=== PATIENT | male | born 1995 | race Caucasian/White ===

== ENCOUNTER 2017-02-15 20:23 | Emergency (ER) | payer OTHER ==
[~2017-02-15] VITALS: Ht 175.3 cm; Wt 59.1 kg
[2017-02-15 20:58] VITALS: BP 129/75; PULSE 72; RESP 16; O2SAT 99
--- NOTE | 2017-02-15 22:10 | ED.REPORT ---
HPI-General Illness Date of Service Feb 15, 2017 ED Provider: Terrence Ho MD A 21 year old male with no pertinent medical history presents to the ED following a head injury that occurred 6 hours prior to arrival. The patient was reportedly riding his skateboard when he fell onto his left side. He is currently complaining of left shoulder pain and left TMJ pain. He rates his pain as a constant 7/10 and the pain is exacerbated by eating.Patient was able to ambulate following the incident. The patient hit his left face and left ear and ripped out a 5/8 gauge. He reports a moment of confusion following the injury. Patient denies any LOC, neck pain, back pain, visual changes, difficulty breathing, numbness/tingling nausea or vomiting. Patient is up to date on all of his vaccinations including tetanus. Nursing Notes Stated Complaint: LACERATION OF LEFT EAR LOBE, TMJ PAIN Chief Complaint: Head, Face, Neck Trauma Nursing Notes Reviewed: Yes Allergies: Coded Allergies: No Known Allergies (Unverified , 02/15/17) No Active Prescriptions or Reported Meds General Time Seen by MD: 21:59 Chief Complaint Other (Head Injury) Hx Obtained From: Patient Arrived By: Walk-in Sudden in Onset?: Yes Onset Occurred: 5 - 8 hours ago (6 hours prior) Symptom Duration: Since onset Caused by: Accidental Location: : Face: Head Quality: Painful Radiation: : Does not radiate Severity: Current: Pain level 7 out of 10 Severity: Maximum: Pain level 7 out of 10 Associated with: Reports: Headache, Denies: Difficulty breathing, Nausea, Vomiting Pertinent Negative: Pt denies other symptoms Exacerbated by: Eating Recent Healthcare: No recent doctor visit, No recent hospitalization Similar Sx Previous: No Past Medical History Past Medical History Inguinal hernia; otherwise healthy Past Surgical History Inguinal hernia repair Family History Non-contributory Smoking History Former Smoker Social History Alcohol Use: "Social" 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), THC Other Social History: Good social support, Lives with parents, Local resident Ambulatory Status Independent Review of Systems Full Review of Systems Constitutional: Denies: Weakness - generalized Eyes: Denies: Visual loss bilateral Respiratory: Denies: Shortness of breath Cardiovascular: Denies: Chest pain GI: Denies: Nausea, Vomiting Musculoskeletal: Reports: Joint pain (TMJ pain), Joint swelling (Wrist and knee pain), Denies: Back pain, Neck pain Skin: Reports Swelling Neurologic: Reports: Confusion, Headache, Denies: Change LOC, Dizziness, Lightheaded, Numbness, Vision change Complete sys rev & neg: except as marked. Physical Exam General: Airway patent, GCS of 15 --- eyes (4), verbal (5), motor (6) HEENT: Right eye normal with pupils 4-3 and briskly reactive Left eye normal with pupils 4-3 and briskly reactive Ear - 1.5 cm to lobule of the left ear + Left TMJ tenderness. Left tympanic membrane normal, right tympanic membrane normal Midface stable, no malocclusion No nasal septal hematoma No obvious external signs of trauma to the scalp appreciated Neck: nontender, trachea midline. Lungs: Clear to auscultation bilaterally, normal work of breathing Chest: Stable without tenderness, no crepitus Cardiac: Regular rate and rhythm Abdomen: Normal, non-tender, non-distended. Back: No bruising, tenderness, or step-offs Pelvis: Stable Skin: Warm and well perfused Extremities: Left upper extremity grossly normal, no deformity. Abrasion to left wrist without tenderness. No bony tenderness. Full ROM. Right upper extremity grossly normal, no deformity. Right lower extremity grossly normal, no deformity. Left lower extremity grossly normal, no deformity. Pulses: Palpable to bilateral upper and lower extremities Neuro: Motor and sensory exams grossly within normal limits; patient localizes to pain. Vital Signs Vital Signs Date Time Temp Pulse Resp B/P Pulse Ox O2 Delivery O2 Flow Rate FiO2 02/16/17 00:31 55 20 116/81 98 Room Air 02/15/17 20:58 36.7 72 16 129/75 99 Room Air Interpretation & Diagnostics CT Head Interpretation CT of the patient's face: IMPRESSION: No CT evidence of acute osseous pathology Study: Head CT no contrast Interpretation / Wet Read by: Interpret - Radiologist (Nightshift) Procedures Dental Nerve Block Dental Nerve Block Note: Regional nerve block of the left ear Time: 23:46 Block Performed by: ED physician Indication: Laceration repair face Consent / Setup / Site Prep: Consent from patient, Time-out performed, Hand hygiene observed, Stand sterile technique, Sterile drapes applied Local Anesthesia: Lidocaine 1% Post-Procedure / Complications: No complications, Condition improved, Tolerated procedure well, Patient stable, No bleeding Laceration Management Laceration Management: Lobule of the left ear Time: 23:46 Procedure Performed by: ED physician Consent / Setup / Site Prep: Consent from patient, Time-out performed, Hand hygiene observed, Stand sterile technique Local Anesthesia: Lidocaine 1% Wound Preparation: Shurclens Debridement: None Irrigation: Copious Foreign Body Explore / Removal: Explored for foreign body Repair Skin: ___ O (4), Nylon # Sutures - Skin: 4 Suture Technique: Simple (Interrupted) Post-Procedure / Complications: Antibiotic oint applied, Dressing applied, No complications, Condition improved, Tolerated procedure well, Patient stable Re-Eval/Medical Decision Med Decision/Clinical Course In summary, 21-year-old male presenting to the ED for evaluation after a fall while skateboarding earlier today. Currently with pain to the left ear and left jaw; did not lose consciousness, no nausea or vomiting, no significant amnesia to the event; no need for head CT at this time per [place] head CT rules. No midline neck tenderness nor complaints of neck pain whatsoever. No trismus. A CT scan of the patient's face was obtained and negative for any acute abnormality. He does have some left shoulder pain, and we discussed performing a x-ray, however the patient states that it feels more like a muscular strain and he does not have any bony tenderness there, full range of motion without pain. The lobule of the left ear was repaired as per above. His tetanus is up-to-date. Plan discharge home with careful return precautions , PCP follow-up in the next several days. Patient agreeable to the plan as stated, no further questions. Time of Eval: 23:46 Re-Evaluation/Progress Note: Laceration is repaired with digital block to left ear. Pt tolerates without complication. Time of Eval: 23:57 Patient Status: Condition improved Re-Evaluation/Progress Note: Patient condition is re-evaluated. He is informed of his current results and the intended treatment plan. All questions are addressed. He understands and agrees with the plan. Counseled Regarding: Diagnosis, Need for follow-up, When/why to return to ED Discharge & Departure Primary Impression: Head injury Encounter type: initial encounter Qualified Code: S09.90XA - Unspecified injury of head, initial encounter Additional Impression: Ear lobe laceration Encounter type: initial encounter Laterality: left Qualified Code: S01.312A - Laceration without foreign body of left ear, initial encounter Disposition: Home Discharge Condition All VS Reviewed: Yes Condition: Improved Patient Instructions: Head Injury (ED), Laceration (ED) Additional Instructions: Thank you for entrusting us with your care today. Your emergency department evaluation today included interview, examination, and CT of your face. Your results are reassuring that there is no emergent cause for concern at this time and there is no evidence of fracture. However, if you' re having trouble opening your mouth or eating return to the ED right away. We repaired the laceration to your ear this evening. You tolerated the procedure very well. Please keep the area clean and dry for the next 24 hours and return to the emergency department in the next 7-10 days to have the stitches removed. Schedule a follow up appointment with your primary care physician (see referral ) or Urgent Care in the next 24-48 hours for a recheck. Please return to the emergency department for further evaluation and possible X- ray if you being to experience any new or worsening pain in your shoulder, or if you have headache, significant amount of blood, pus coming from the wound, nausea, vomiting, fever, chills, numbness/tingling in your arms or legs, loss of consciousness or any other concerning signs of symptoms. Referrals: NOPCP (PCP) Leta Razo MD Scribe Attestation Portions of this note were transcribed by Wesley Murillo. I, Dr. Ho, personally performed the history, physical exam and medical decision-making; I reviewed and confirmed the accuracy of the information in the transcribed note. Signed by: Wesley Murillo, 02/15/17. Terrence Ho MD Feb 15, 2017 22:10 WESLEY MURILLO Feb 15, 2017 22:17
[2017-02-16 00:31] VITALS: BP 116/81; PULSE 55; RESP 20; O2SAT 98
--- NOTE | 2017-02-16 08:49 | DRSVH ---
PROCEDURE: CT FACE WITHOUT CONTRAST ([id number]) INDICATIONS: blunt facial trauma, jaw pain, L TMJ pain TECHNIQUE: Noncontrast 1.5 mm thick axial images acquired from the mandible through the frontal sinuses, with co angeles and sagittal reformatting. For radiation dose reduction, the following was used: automated ex posure control. COMPARISON: None. FINDINGS: Image quality: Good Bones and teeth: Orbital harper are intact. Sinus harper show no fracture or deformity. Nasal bones and septum are intact. Visualized portions of the mandible demonstrate no fractures or subluxation. Zygomatic arches are intact. Pterygoid plates are intact. Visualized portions of the skull base an d auditory canals are intact. Sinuses: Paranasal sinuses are aerated, without fluid levels, mucosal thickening, or mucoceles. Mas toid air cells are aerated. Soft tissues: No edema, masses, or fluid collections. No enlarged lymph nodes. No soft tissue lace rations or debris. IMPRESSION: No traumatic abnormalities found in the CT scan of the face. Dictated by: Leon Boone M.D. on 02/16/2017 at 8:45 this report corresponds to the findings of regina richter preliminary NSR report. Approved by: Leon Boone M.D. on 02/16/2017 at 8:47
== END 2017-02-16 00:32 | disposition home or self-care (01) ==
LOC: SED 20:23
DX: S01.312A Laceration without foreign body of left ear, initial encounter (principal); V00.131A Fall from skateboard, initial encounter; Y93.51 Activity, roller skating (inline) and skateboarding; Y92.009 Unspecified place in unspecified non-institutional (private) residence as the place of occurrence of the external cause; Y99.8 Other external cause status; R41.0 Disorientation, unspecified; M25.512 Pain in left shoulder; M26.622 Arthralgia of left temporomandibular joint; Z98.890 Other specified postprocedural states; Z87.891 Personal history of nicotine dependence

== ENCOUNTER 2017-02-27 13:39 | Emergency (ER) | payer OTHER ==
[~2017-02-27] VITALS: Ht 172.7 cm; Wt 59.1 kg
[2017-02-27 13:43] VITALS: BP 123/76; PULSE 59; RESP 16; O2SAT 99
--- NOTE | 2017-02-27 13:51 | ED.REPORT ---
HPI-Recheck W/B/S Date of Service Feb 27, 2017 ED Provider: History of Present Illness: need sutures removed from left ear, placed 12 days ago, no concerns. no primary care. plastic sprocket was removed traumatically after getting it caught on a railing Nursing Notes Stated Complaint: SUTURE REMOVAL Chief Complaint: Wound Recheck/Suture Removal Nursing Notes Reviewed: Yes Allergies: Coded Allergies: No Known Allergies (Unverified , 02/15/17) No Active Prescriptions or Reported Meds General Time Seen by Provider: 13:48 Chief Complaint Suture removal Hx Obtained From: Patient Onset Occurred: More than a week ago... (2 weeks) Past Medical History Past Medical History Inguinal hernia; otherwise healthy Past Surgical History Inguinal hernia repair Family History Non-contributory Smoking History Former Smoker Social History Alcohol Use: "Social" Drug Use: In recovery, THC Other Social History: Good social support, Lives with parents, Local resident Occupation works at the [employer] 02/27/2017 Ambulatory Status Independent Review of Systems Basic Review of Systems Eyes: Vision NL, No discharge Hematologic: No bleeding, No bruising Psychiatric: Normal thought content Physical Exam Initial Vital Signs Vital Signs (First) Date Time Temp Pulse Resp B/P Pulse Ox O2 Delivery O2 Flow Rate FiO2 02/27/17 13:43 36.6 59 16 123/76 99 Room Air Initial VS: Reviewed, Vital signs normal General/Constitutional: Well-developed, Well-nourished Head / Eyes: Atraumatic, Normocephalic, PERRL ENT: Mucous membranes moist, Conjunctiva normal, No scleral icterus Neck: Supple, Non-tender, Full range of motion Respiratory: Breath sounds normal, Clear to auscultation, No respiratory distress Cardiovascular: Regular rate & rhythm, Heart sounds normal, Intact distal pulses Abdomen / GI: Soft, Non-tender, No guarding, No rebound, No distention Back: No CVA tenderness Lymphatic: No lymphadenopathy Extremities: Vascular intact, Neuro intact, No swelling, No tenderness Neurologic: Alert, Oriented, Nonfocal Psychiatric: Mood/affect normal, Behavior normal, Normal thought content Rash / Lesion Notes: site is well healed. Respiratory / Chest: Atraumatic, Breath sounds NL, Breath sounds = bilat, No rales, No rhonchi, No wheezing, No retractions Cardiovascular: Heart rate NL, Regular rhythm, Heart sounds NL, Peripheral circulation NL Lower Ext Edema: Positive: Left 2+, Non-Pitting, Pitting Re-Eval/Medical Decision Med Decision/Clinical Course 21 year old male presents for removal of sutures from left ear. Removed without difficulty Discharge & Departure Impression: Primary Impression: Visit for suture removal Disposition: Home Additional Instructions: The site looks good. All sutures have been removed. No sign of infection. Please establish in primary care. Consider the residency clinic. Referrals: [facility] EDSupervising Provider for APC: Modesto Ryan MD copies to: [facility] Saima Bernal Feb 27, 2017 13:51
== END 2017-02-27 15:00 | disposition home or self-care (01) ==
LOC: SED 13:39
DX: Z48.02 Encounter for removal of sutures (principal); Z87.891 Personal history of nicotine dependence